=== PATIENT | male | born 1990 | race African-American/Black ===

== ENCOUNTER 2017-04-13 19:07 | Emergency (ER) | payer OTHER ==
[~2017-04-13] VITALS: Ht 180.3 cm; Wt 104.3 kg
[~2017-04-13 19:07] MED LIST: BENTYL 20 MG TA20 M1 PO; CIPRO500 MG PO; HYDROCODONE-APA1 TA1 PO; NOHOMEMEDICATIONS; PROMETHAZINE12.5 M1 PO; ZPAK PO
[2017-04-13 19:39] LABS: ABSOLUTE BASOPHILS 0.1 thou/uL (0.0-0.2); ABSOLUTE EOSINOPHILS 0.6 thou/uL (0.0-0.7); ABSOLUTE LYMPHOCYTES 2.6 thou/uL (0.8-5.3); ABSOLUTE MONOCYTES 0.8 thou/uL (0.0-1.2); ABSOLUTE NEUTROPHILS 8.1 thou/uL (1.6-8.1); BASOPHILS 0.7 %; EOSINOPHILS 4.9 %; HEMATOCRIT 46.5 % (42.0-52.0); HEMOGLOBIN 16.2 gm/dL (14.0-18.0); LYMPHOCYTES 21.7 %; MCH 29.7 pg (26.0-34.0); MCHC 34.8 g/dL (28.0-37.0); MCV 85.4 fL (80.0-100.0); MONOCYTES 6.3 %; MPV 7.9 fl. (7.2-11.1); NUCLEATED RBCS 0 /100WBC; PLATELET COUNT* 257 thou/uL (150-400); POLYS 66.4 %; RBC 5.45 mil/uL (4.50-6.00); RDW-CV 13.5 % (10.5-14.5); WBC 12.2 thou/uL (4.0-11.0)
[2017-04-13 19:47] LABS: ANION GAP 7 mmol/L (7-16); BUN 10 mg/dL (7-18); CALCIUM 8.7 mg/dL (8.5-10.1); CHLORIDE 103 mmol/L (98-107); CO2 29 mmol/L (21-32); CREATININE 1.1 mg/dL (0.6-1.3); GLUCOSE 110 mg/dL (70-99); POTASSIUM 3.7 mmol/L (3.5-5.1); SODIUM 139 mmol/L (136-145)
[2017-04-13 19:58] LABS: ALBUMIN 4.1 g/dL (3.4-5.0); ALKALINE PHOSPHATASE 50 U/L (46-116); NT-PRO BRAIN NAT PEPTIDE 7 pg/mL (<300); SGOT 15 U/L (15-37); SGPT 25 U/L (30-65); TOTAL BILIRUBIN 0.3 mg/dL (<0.1-1.0); TOTAL PROTEIN 7.3 g/dL (6.4-8.2); TROPONIN-I LEVEL <0.06 ng/mL (<0.06)
[2017-04-13 20:11] LABS: INR 1.1; PROTIME 10.9 Seconds (9.20-11.50)
[2017-04-13 20:46] LABS: URINE BILIRUBIN NEGATIVE (Negative); URINE BLOOD NEGATIVE (Negative); URINE CLARITY CLEAR; URINE COLOR YELLOW; URINE GLUCOSE-RANDOM NEGATIVE (Negative); URINE KETONES NEGATIVE (Negative); URINE LEUKOCYTES-REFLEX NEGATIVE (Negative); URINE NITRITE-REFLEX NEGATIVE (Negative); URINE PROTEIN NEGATIVE (Negative); URINE UROBILINOGEN 0.2 E.U./dl (0.2-1.0)
[2017-04-13 21:05] VITALS: BP 133/85
--- NOTE | 2017-04-14 12:37 | EKG ---
[place] [address] ELECTROCARDIOGRAM REPORT Name: WESLEY DIMAS [id number] Admission: 04/13/17 Attend Phys: Discharge: 04/13/17 Date of : 86 Report #: [id number] THIS REPORT FOR: //name// [facility] ED Test Date: 2017-04-13 Test Time: 19:11:51 Pat Name: WESLEY DIMAS Department: Room: Gender: M [employer]: MARIA LUISA : 1990 Requested By: Catie Almeida Order Number: [id number] MD: Israel Damon Measurements Intervals [place] Rate: 74 P: 47 DE: 154 QRS: 47 QRSD: 92 T: 30 QT: 353 QTc: 392 Interpretive Statements Sinus rhythm ST elev, probable normal early repol pattern Compared to ECG 10/02/2014 03:49:08 No significant changes Electronically Signed On 04-14-2017 12:37:31 LOGISTICS INTERN by Israel Damon [email or web address] <ELECTRONICALLY SIGNED> By: Israel Damon MD, [facility] 04/14/17 1237 [id number] 10 Israel Damon MD, FACC /EPI
== END 2017-04-13 21:05 | disposition home or self-care (01) ==
LOC: M.ERS 19:07
PROVIDERS: Emergency Medicine
DX: R07.9 Chest pain, unspecified (principal); Z90.89 Acquired absence of other organs

== ENCOUNTER 2017-11-09 18:15 | Emergency (ER) | payer OTHER ==
[~2017-11-09] VITALS: Ht 180.3 cm; Wt 131.5 kg
[2017-11-09 18:20] VITALS: BP 138/94
[2017-11-09] MEDS ORDERED: AMOXIL 875 MG875 M2 PO (18:45)
[2017-11-09] MEDS ORDERED: MEDROLDOSEPACK PO (18:45)
== END 2017-11-09 18:58 | disposition home or self-care (01) ==
LOC: M.ERS 18:15
DX: J02.9 Acute pharyngitis, unspecified (principal); Z88.8 Allergy status to other drugs, medicaments and biological substances

== ENCOUNTER 2018-11-25 09:14 | Emergency (ER) | payer OTHER ==
[~2018-11-25] VITALS: Ht 180.3 cm; Wt 113.4 kg
[~2018-11-25 09:14] MED LIST changes: +AMOXIL 875 MG875 M2 PO; +MEDROLDOSEPACK PO
[2018-11-25 10:01] LABS: INFLUENZA A ANTIGEN Negative (Negative); INFLUENZA B ANTIGEN Negative (Negative)
[2018-11-25] MEDS ORDERED: AUGMENTIN 500-1 EACH PO (10:09)
[2018-11-25 10:12] VITALS: BP 151/95
== END 2018-11-25 10:10 | disposition home or self-care (01) ==
LOC: M.ERS 09:14
PROVIDERS: Emergency Medicine
DX: J32.9 Chronic sinusitis, unspecified (principal)